=== PATIENT | female | born 1960 | race Caucasian/White ===

== ENCOUNTER 2017-12-02 11:50 | Observation (INO) | payer OTHER ==
--- NOTE | 2017-12-02 12:22 | ED ---
General Adult HPI - General Chief complaint: Arrhythmia/Palpitations Stated complaint: Abn EKG Time Seen by Provider: 12/02/17 12:05 Source: patient, RN notes reviewed, old records reviewed Mode of arrival: ambulatory Limitations: no limitations - History of Present Illness Initial comments: This is a 57-year-old female to the ER for evaluation. Patient presents ER today for evaluation regarding chest pain. Patient sent in for evaluation by family doctor regarding palpitations possibly abnormal EKG. Patient does admit to palpitations elevated heart rate. Occasional shortness of breath but she does suffer shortness of breath with asthma and smoking. Patient denies any history of prior heart disease or heart attack. No recent travel history or sick contacts. No fever cough or congestion - Related Data Home Medications Medication Instructions Recorded Confirmed ALPRAZolam [Xanax] 0.125 mg PO BID PRN 12/02/17 12/02/17 ARIPiprazole [Abilify] 2 mg PO HS 12/02/17 12/02/17 Albuterol Inhaler [Ventolin Hfa 2 puff INHALATION RT-QID PRN 12/02/17 12/02/17 Inhaler] Beclomethasone Dip 80 Mcg/Puff 1 puff INHALATION RT-BID 12/02/17 12/02/17 [Qvar 80 mcg] Gemfibrozil [Lopid] 600 mg PO BID 12/02/17 12/02/17 Ibuprofen [Motrin] 800 mg PO TID PRN 12/02/17 12/02/17 Levothyroxine Sodium [Synthroid] 50 mcg PO DAILY 12/02/17 12/02/17 Loratadine [Claritin] 10 mg PO DAILY 12/02/17 12/02/17 Ranitidine HCl [Zantac] 150 mg PO BID 12/02/17 12/02/17 Sertraline HCl [Zoloft] 50 mg PO HS 12/02/17 12/02/17 Allergies Allergy/AdvReac Type Severity Reaction Status Date / Time cephalexin [From Keflex] Allergy Rash/Hives Verified 12/02/17 12:20 Review of Systems ROS Statement: Those systems with pertinent positive or pertinent negative responses have been documented in the HPI. ROS Other: All systems not noted in ROS Statement are negative. Past Medical History Past Medical History: Asthma, Chest Pain / Angina, Hyperlipidemia, Thyroid Disorder History of Any Multi-Drug Resistant Organisms: None Reported Past Surgical History: Tonsillectomy, Tubal Ligation Past Psychological History: Bipolar, PTSD Smoking Status: Current every day smoker Past Alcohol Use History: None Reported Past Drug Use History: None Reported - Past Family History Father Family Medical History: No Reported History Additional Family Medical History / Comment(s): Father is healthy. He is 82 yrs old. Mother Family Medical History: Congestive Heart Failure (CHF) Additional Family Medical History / Comment(s): Mother of CHF at the age of 77yrs. General Exam Limitations: no limitations General appearance: alert, in no apparent distress Head exam: Present: atraumatic, normocephalic, normal inspection Eye exam: Present: normal appearance, PERRL, EOMI. Absent: scleral icterus, conjunctival injection, periorbital swelling ENT exam: Present: normal exam, mucous membranes moist Neck exam: Present: normal inspection. Absent: tenderness, meningismus, lymphadenopathy Respiratory exam: Present: normal lung sounds bilaterally. Absent: respiratory distress, wheezes, rales, rhonchi, stridor Cardiovascular Exam: Present: regular rate, normal rhythm, normal heart sounds. Absent: systolic murmur, diastolic murmur, rubs, gallop, clicks GI/Abdominal exam: Present: soft, normal bowel sounds. Absent: distended, tenderness, guarding, rebound, rigid Extremities exam: Present: normal inspection, full ROM, normal capillary refill. Absent: tenderness, pedal edema, joint swelling, calf tenderness Back exam: Present: normal inspection Neurological exam: Present: alert, oriented X3, CN II-XII intact Psychiatric exam: Present: normal affect, normal mood Skin exam: Present: warm, dry, intact, normal color. Absent: rash Course Vital Signs 12/02/17 12/02/17 12/02/17 12:00 13:06 14:05 Temperature 98.3 F 98.3 F Pulse Rate 88 77 77 Respiratory 18 18 18 Rate Blood Pressure 145/90 143/67 137/78 O2 Sat by Pulse 96 97 98 Oximetry - Reevaluation(s) Reevaluation #1: Patient with no significant symptoms, no chest pain. EKG Findings - EKG Comments: EKG Findings:: EKG shows sinus rhythm rate of 75, NM 120, QRS 78, QTc 475 Medical Decision Making - Medical Decision Making 57 female the ER for evaluation of chest pain. Atypical chest pain with palpitations and tachycardia, patient be admitted for cardiac observation - Lab Data Result diagrams: 12/02/17 12:06 12/02/17 12:06 Lab Results 12/02/17 12/02/17 12/02/17 Range/Units 12:06 12:06 12:06 WBC 9.8 (3.8-10.6) k/uL RBC 4.31 (3.80-5.40) m/uL Hgb 13.7 (11.4-16.0) gm/dL Hct 41.5 (34.0-46.0) % MCV 96.4 (80.0-100.0) fL MCH 31.8 (25.0-35.0) pg MCHC 33.0 (31.0-37.0) g/dL RDW 13.1 (11.5-15.5) % Plt Count 434 (150-450) k/uL Neutrophils % 69 % Lymphocytes % 20 % Monocytes % 6 % Eosinophils % 4 % Basophils % 1 % Neutrophils # 6.7 (1.3-7.7) k/uL Lymphocytes # 1.9 (1.0-4.8) k/uL Monocytes # 0.6 (0-1.0) k/uL Eosinophils # 0.4 (0-0.7) k/uL Basophils # 0.1 (0-0.2) k/uL PT 10.0 (9.0-12.0) sec INR 1.0 (<1.2) APTT 24.4 (22.0-30.0) sec Sodium (137-145) mmol/L Potassium (3.5-5.1) mmol/L Chloride (98-107) mmol/L Carbon Dioxide (22-30) mmol/L Anion Gap mmol/L BUN (7-17) mg/dL Creatinine (0.52-1.04) mg/dL Est GFR (CKD-EPI)AfAm (>60 ml/min/1.73 sqM) Est GFR (CKD-EPI)NonAf (>60 ml/min/1.73 sqM) Glucose (74-99) mg/dL Calcium (8.4-10.2) mg/dL Magnesium (1.6-2.3) mg/dL Total Bilirubin (0.2-1.3) mg/dL AST (14-36) U/L ALT (9-52) U/L Alkaline Phosphatase (38-126) U/L Total Creatine Kinase 71 (30-135) U/L CK-MB (CK-2) 0.3 (0.0-2.4) ng/mL CK-MB (CK-2) Rel Index 0.4 Troponin I <0.012 (0.000-0.034) ng/mL Total Protein (6.3-8.2) g/dL Albumin (3.5-5.0) g/dL 12/02/17 Range/Units 12:06 WBC (3.8-10.6) k/uL RBC (3.80-5.40) m/uL Hgb (11.4-16.0) gm/dL Hct (34.0-46.0) % MCV (80.0-100.0) fL MCH (25.0-35.0) pg MCHC (31.0-37.0) g/dL RDW (11.5-15.5) % Plt Count (150-450) k/uL Neutrophils % % Lymphocytes % % Monocytes % % Eosinophils % % Basophils % % Neutrophils # (1.3-7.7) k/uL Lymphocytes # (1.0-4.8) k/uL Monocytes # (0-1.0) k/uL Eosinophils # (0-0.7) k/uL Basophils # (0-0.2) k/uL PT (9.0-12.0) sec INR (<1.2) APTT (22.0-30.0) sec Sodium 145 (137-145) mmol/L Potassium 3.8 (3.5-5.1) mmol/L Chloride 103 (98-107) mmol/L Carbon Dioxide 29 (22-30) mmol/L Anion Gap 13 mmol/L BUN 6 L (7-17) mg/dL Creatinine 0.67 (0.52-1.04) mg/dL Est GFR (CKD-EPI)AfAm >90 (>60 ml/min/1.73 sqM) Est GFR (CKD-EPI)NonAf >90 (>60 ml/min/1.73 sqM) Glucose 99 (74-99) mg/dL Calcium 9.9 (8.4-10.2) mg/dL Magnesium 2.0 (1.6-2.3) mg/dL Total Bilirubin 0.3 (0.2-1.3) mg/dL AST 22 (14-36) U/L ALT 16 (9-52) U/L Alkaline Phosphatase 126 (38-126) U/L Total Creatine Kinase (30-135) U/L CK-MB (CK-2) (0.0-2.4) ng/mL CK-MB (CK-2) Rel Index Troponin I (0.000-0.034) ng/mL Total Protein 7.1 (6.3-8.2) g/dL Albumin 4.1 (3.5-5.0) g/dL - Radiology Data Radiology results: report reviewed (Chest x-rays negative for acute disease), image reviewed Disposition Clinical Impression: Chest pain, Palpitations Disposition: ADMITTED IP TO THIS [facility] Condition: Undetermined
[2017-12-02 12:32] LABS: Basophils # (A) 0.1 k/uL (0-0.2); Basophils % (A) 1 %; Eosinophils # (A) 0.4 k/uL (0-0.7); Eosinophils % (A) 4 %; HCT 41.5 % (34.0-46.0); HGB 13.7 gm/dL (11.4-16.0); Lymphocytes # (A) 1.9 k/uL (1.0-4.8); Lymphocytes % (A) 20 %; MCH 31.8 pg (25.0-35.0); MCV 96.4 fL (80.0-100.0); Mean Platelet Volume 7.3; Monocytes # (A) 0.6 k/uL (0-1.0); Monocytes % (A) 6 %; Neutrophils # (A) 6.7 k/uL (1.3-7.7); Neutrophils % (A) 69 %; Platelet Count 434 k/uL (150-450); RBC 4.31 m/uL (3.80-5.40); RDW 13.1 % (11.5-15.5); WBC 9.8 k/uL (3.8-10.6)
--- NOTE | 2017-12-02 12:39 | XR ---
EXAMINATION TYPE: XR chest 2V DATE OF EXAM: 12/02/2017 COMPARISON: NONE HISTORY: Shortness of breath TECHNIQUE: Frontal and lateral views of the chest are obtained. FINDINGS: Scattered senescent parenchymal changes noted. Hyperinflation compatible with COPD. No evidence for infiltrate. No evidence for atelectasis. Heart size is stable. Mediastinal structures are stable and grossly unremarkable. No evidence for hilar prominence. Degenerative changes dorsal spine. IMPRESSION: 1. No evidence for acute pulmonary disease.
[2017-12-02 12:47] LABS: ALT 16 U/L (9-52); AST 22 U/L (14-36); Albumin 4.1 g/dL (3.5-5.0); Alkaline Phosphatase 126 U/L (38-126); Anion Gap 13 mmol/L; Blood Urea Nitrogen 6 mg/dL (7-17); Calcium 9.9 mg/dL (8.4-10.2); Carbon Dioxide 29 mmol/L (22-30); Chloride 103 mmol/L (98-107); Glucose 99 mg/dL (74-99); Potassium 3.8 mmol/L (3.5-5.1); Sodium 145 mmol/L (137-145); Total Bilirubin 0.3 mg/dL (0.2-1.3); Total Protein 7.1 g/dL (6.3-8.2)
[2017-12-02 12:48] LABS: Partial Thromboplastin Time 24.4 sec (22.0-30.0)
[2017-12-02 12:53] LABS: Creatine Kinase 71 U/L (30-135)
[2017-12-02 13:07] LABS: Creatine Kinase MB 0.3 ng/mL (0.0-2.4); Troponin I <0.012 ng/mL (0.000-0.034)
[2017-12-02] MEDS ORDERED: MORPHINE SULFATE 4MG/4ML SYRG IV PRN (13:34)
[2017-12-02] MEDS ORDERED: NITROGLYCERIN SL TABS 0.4 MG TAB SUBLINGUAL PRN (13:34)
[2017-12-02] MEDS ORDERED: INFLUENZA VACCINE (6 MOS+) 60 MCG/0.5 ML SYRINGE IM ONE (14:25)
[2017-12-02 14:32] VITALS: BMI 18.7
[2017-12-02] MEDS ORDERED: ALBUTEROL NEBULIZED 2.5 MG/3 ML INHALATION PRN (15:21)
[2017-12-02] MEDS ORDERED: ALPRAZolam 0.25 MG TAB PO PRN (15:21)
[2017-12-02] MEDS ORDERED: IBUPROFEN 800 MG TAB PO PRN (15:21)
[2017-12-02] MEDS: LORazepam 0.5 MG TAB PO PRN (16:31)
[2017-12-02 16:55] LABS: Appearance,Urine Clear (Clear); Bilirubin,Urine Negative (Negative); Blood,Urine Negative (Negative); Color,Urine Yellow; Glucose,Urine (UA) Negative (Negative); Ketones,Urine Negative (Negative); Leukocyte Esterase,Urine Negative (Negative); Nitrite,Urine Negative (Negative); PH, Urine 6.5 (5.0-8.0); Protein,Urine Negative (Negative); Urobilinogen,Urine <2.0 mg/dL (<2.0)
--- NOTE | 2017-12-02 18:22 | XR ---
EXAMINATION TYPE: XR sinus DATE OF EXAM: 12/02/2017 COMPARISON: NONE HISTORY: Sinus pressure TECHNIQUE: 4 views FINDINGS: Orbital margins are intact. Maxilla is intact. There is fairly normal development and aerat ion of the paranasal sinuses. Sella turcica appears normal. IMPRESSION: Normal paranasal sinuses exam.
[2017-12-02 18:41] LABS: Creatine Kinase 62 U/L (30-135)
[2017-12-02 18:53] LABS: Creatine Kinase MB 0.4 ng/mL (0.0-2.4); Troponin I <0.012 ng/mL (0.000-0.034)
[2017-12-02] MEDS ORDERED: IPRATROPIUM-ALBUTEROL 3 ML NEB INHALATION SCH (20:00)
[2017-12-02] MEDS: GEMFIBROZIL 600 MG TAB PO SCH (20:10)
[2017-12-02] MEDS: FAMOTIDINE 20 MG TAB PO SCH (20:10)
[2017-12-02] MEDS: BUDESONIDE 0.5 MG/2 ML NEBU INHALATION SCH (20:15)
[2017-12-02] MEDS ORDERED: SERTRALINE 50 MG TAB PO SCH (21:00)
[2017-12-02] MEDS ORDERED: ARIPiprazole 2 MG TAB PO SCH (21:00)
--- NOTE | 2017-12-02 22:55 | P.HPIM ---
History of Present Illness H&P Date: 12/02/17 Chief Complaint: Chest pain Patient is a 57-year-old female with a known history of asthma/COPD, hyperlipidemia and hypothyroidism and anxiety/depression came to ER with complaints of chest pain. Aberrantly patient did have left retrosternal chest pain and also felt some pain in her left shoulder. Associated with shortness of breath, palpitations and nausea. No headache or dizziness. No diaphoresis. Patient has been very anxious and went to her primary care physician where she had EKG showed which was abnormal as per patient and was sent to the hospital for further evaluation. Denied any fever or chills. Denied any congestion or flulike illness. Patient does complain of a cough without minimal greenish sputum production. Patient does have greenish discharge from the nose and was started on antibiotics for possible sinusitis today morning. Patient did not take and antibiotics. Patient also complaining of bright colored urine. Otherwise patient continues to smoke 1 pack per day... No sick contacts at home. No recent travel. chest x-ray showed no acute cardio pulmonary process EKG showed normal sinus rhythm with nonspecific ST-T wave changes Troponin 1 negative No leukocytosis. UA negative. Review of Systems Constitutional: Patient denies any fever or chills . No generalized weakness or weight loss. Abdomen: Patient denied nausea vomiting and diarrhea and abdominal pain. Cardiovascular: Patient does have chest pain. And palpitations. And shortness of breath. No leg swelling Respiratory: Minimal cough with greenish sputum and shortness of breath. No wheezing Neurologic: Patient denied any numbness or tingling headache. Musculoskeletal: Patient denies any complaints of joint swelling or deformity. Skin: Negative Psychiatric: Very much anxious Endocrine: No heat or cold intolerance. No recent weight gain. Genitourinary: No dysuria or hematuria. All other 14 point ROS negative except the above Past Medical History Past Medical History: Asthma, Chest Pain / Angina, Hyperlipidemia, Thyroid Disorder Additional Past Medical History / Comment(s): Bilateral carpal tunnel syndrome with L side worse, arthritis bilateral knees, DDD, L posterior neck into L shoulder pain and back pain since 2001 work related injury, sinus problems and diagnosed today by her PCP to have a sinus infection, hiatal hernia, hypothyroid. History of Any Multi-Drug Resistant Organisms: None Reported Past Surgical History: Tonsillectomy, Tubal Ligation Additional Past Surgical History / Comment(s): EGD/colonoscopy Past Anesthesia/Blood Transfusion Reactions: No Reported Reaction Past Psychological History: Bipolar, PTSD Smoking Status: Current every day smoker Past Alcohol Use History: None Reported Past Drug Use History: None Reported - Past Family History Father Family Medical History: No Reported History Additional Family Medical History / Comment(s): Father is healthy. He is 82 yrs old. Mother Family Medical History: Congestive Heart Failure (CHF) Additional Family Medical History / Comment(s): Mother of CHF at the age of 77yrs. Medications and Allergies Home Medications Medication Instructions Recorded Confirmed Type ALPRAZolam [Xanax] 0.125 mg PO BID PRN 12/02/17 12/02/17 History ARIPiprazole [Abilify] 2 mg PO HS 12/02/17 12/02/17 History Albuterol Inhaler [Ventolin Hfa 2 puff INHALATION RT-QID PRN 12/02/17 12/02/17 History Inhaler] Beclomethasone Dip 80 Mcg/Puff 1 puff INHALATION RT-BID 12/02/17 12/02/17 History [Qvar 80 mcg] Gemfibrozil [Lopid] 600 mg PO BID 12/02/17 12/02/17 History Ibuprofen [Motrin] 800 mg PO TID PRN 12/02/17 12/02/17 History Levothyroxine Sodium [Synthroid] 50 mcg PO DAILY 12/02/17 12/02/17 History Loratadine [Claritin] 10 mg PO DAILY 12/02/17 12/02/17 History Ranitidine HCl [Zantac] 150 mg PO BID 12/02/17 12/02/17 History Sertraline HCl [Zoloft] 50 mg PO HS 12/02/17 12/02/17 History Allergies Allergy/AdvReac Type Severity Reaction Status Date / Time cephalexin [From Keflex] Allergy Rash/Hives Verified 12/02/17 12:20 Physical Exam Vitals: Vital Signs Temp Pulse Pulse Resp BP BP Pulse Ox 12/02/17 14:30 98.2 F 60 16 157/78 99 12/02/17 14:05 98.3 F 77 18 137/78 98 12/02/17 13:34 99 12/02/17 13:06 77 18 143/67 97 12/02/17 12:00 98.3 F 88 18 145/90 96 Intake and Output 12/02/17 12/02/17 12/02/17 06:59 14:59 22:59 Intake Total 240 Balance 240 Intake: Oral 240 Other: Weight 44.4 kg PHYSICAL EXAMINATION: Patient is lying in the bed comfortably, no acute distress, awake alert and oriented. Patient is very anxious. HEENT: Normocephalic. Neck is supple. Pupils reactive. Nostrils clear. Oral cavity is moist. Ears reveal no drainage. Neck reveals no JVD, carotid bruits, or thyromegaly. CHEST EXAMINATION: Trachea is central. Symmetrical expansion. Bilateral slow entry. No wheezing. CARDIAC: Normal S1, S2 with no gallops. No murmurs ABDOMEN: Soft. Bowel sounds normal. No organomegaly. No abdominal bruits. Extremities: reveal no edema. No clubbing or cyanosis Neurologically awake, alert, oriented x3 with well-coordinated movements. No focal deficits noted Skin: No rash or skin lesions. Psychiatric: Cooperative. Anxious. Musculoskeletal: No joint swelling or deformity. Normal range of motion. Results CBC & Chem 7: 12/02/17 12:06 12/02/17 12:06 Labs: Abnormal Lab Results - Last 24 Hours (Table) 12/02/17 Range/Units 12:06 BUN 6 L (7-17) mg/dL Thrombosis Risk Factor Assmnt - DVT/VTE Prophylaxis DVT/VTE Prophylaxis: Pharmacologic Prophylaxis ordered - Choose All That Apply Any of the Below Risk Factors Present?: Yes Each Factor Represents 1 point: Age 41-60 years Other Risk Factors: No Other congenital or acquired thrombophilia - If yes, enter type in comment: No Thrombosis Risk Factor Assessment Total Risk Factor Score: 1 Thrombosis Risk Factor Assessment Level: Low Risk Assessment and Plan Assessment: Atypical chest pain. Rule out acute coronary syndrome Acute bronchitis and possible sinusitis COPD/asthma Nicotine addiction Anxiety and depression Bipolar disorder and PTSD Hypothyroidism Degenerative joint disease Hyperlipidemia Hiatal hernia Bilateral carpal tunnel syndrome Plan: Patient will be continued on telemetry monitoring. Serial EKGs and troponins. Patient will be continued on DuoNeb's and Pulmicort. We will start on antibiotics in the form of azithromycin. Continue the exam neck and antidepressants. Cardiology is consulted for evaluation. Further recommendations based on the clinical course. Time with Patient: Greater than 30
[2017-12-02] MEDS: AZITHROMYCIN 500 MG TAB PO SCH (23:02)
[2017-12-02] MEDS: HEPARIN SODIUM,PORCINE 5,000 UNIT/ML 1 ML VIAL SQ SCH (23:09)
[2017-12-02] MEDS ORDERED: IPRATROPIUM-ALBUTEROL 3 ML NEB INHALATION PRN (23:51)
[2017-12-03 00:27] LABS: Cholesterol 88 mg/dL (<200); HDL Cholesterol 22 mg/dL (40-60); LDL Cholesterol,Calculated 36 mg/dL (0-99); Triglycerides 151 mg/dL (<150)
[2017-12-03 00:39] LABS: Creatine Kinase 55 U/L (30-135)
[2017-12-03 00:52] LABS: Creatine Kinase MB 0.3 ng/mL (0.0-2.4); Troponin I <0.012 ng/mL (0.000-0.034)
[2017-12-03] MEDS ORDERED: LEVOTHYROXINE 50 MCG TAB PO SCH (06:30)
[2017-12-03] MEDS: BUDESONIDE 0.5 MG/2 ML NEBU INHALATION SCH (07:55)
[2017-12-03] MEDS: IPRATROPIUM-ALBUTEROL 3 ML NEB INHALATION SCH ×3 (07:55→15:37)
[2017-12-03] MEDS ORDERED: ASPIRIN 325 MG TAB PO SCH (09:00)
[2017-12-03] MEDS ORDERED: ATORVASTATIN 80 MG TAB PO SCH (09:00)
[2017-12-03] MEDS ORDERED: LORATADINE 10 MG TAB PO SCH (09:00)
[2017-12-03] MEDS ORDERED: ASPIRIN 81 MG PO SCH (09:07)
[2017-12-03] MEDS: AZITHROMYCIN 500 MG TAB PO SCH (09:28)
[2017-12-03] MEDS: FAMOTIDINE 20 MG TAB PO SCH (09:28)
[2017-12-03] MEDS: GEMFIBROZIL 600 MG TAB PO SCH (09:28)
[2017-12-03] MEDS: HEPARIN SODIUM,PORCINE 5,000 UNIT/ML 1 ML VIAL SQ SCH ×2 (09:28→17:06)
--- NOTE | 2017-12-03 09:38 | CONS ---
CONSULTATION Mrs. Schaefer is a 57-year-old female with known history of chronic tobacco use, history of hyperlipidemia, who has been having a cough with sinus drainage and nasal drainage that was greenish. She was seen by her PCP and her EKG was abnormal and was referred to the hospital. The patient has some dyspnea on exertion. She has chronic tobacco use and history of bronchial asthma, but she denies any chest pain. She felt some palpitation in the chest, but no associated syncope or dizziness. She denies any peripheral edema. No clear PND or orthopnea. She has no prior documented cardiac disease. Her coronary risk factors are remarkable for history of hyperlipidemia as well as history of chronic tobacco use, about a pack a day. MEDICATION: At home include Zoloft, Ventolin and Abilify, Zantac, Lopid 600 mg twice a day, Q-Manas, Synthroid, Motrin, and Xanax. REVIEW OF SYSTEMS: Respiratory system: She has history of cough, asthma and chronic tobacco use. GI system: No recent GI bleeding. No peptic ulcer disease. system: No dysuria or hematuria. Nervous system: There is questionable history of seizure, although the history appears to be vague. PHYSICAL EXAMINATION: A 57-year-old female, alert, oriented, in no apparent distress. Blood pressure 113/60 with a heart in 70s. HEAD: Normocephalic. Eyes sclerae anicteric. Neck is good carotid upstroke. No jugular venous distention. LUNGS: Clear to auscultation. HEART: Regular rate and rhythm S1, S2. No S3 with systolic murmur heard at the base. Ejection type. No diastolic murmur. No rub. ABDOMEN: Soft, nontender. Positive bowel sounds. No organomegaly. EXTREMITIES: No edema and intact distal pulses. LAB DATA: Lab data revealed a troponin of less than 0.012. Cholesterol of 88, LDL of 36, BUN and creatinine 6 and 0.67, potassium 3.8, hemoglobin is 13.7. Chest x-ray shows no evidence of infiltrate. EKG revealed a sinus mechanism, rate of 75, RSR prime with minor nonspecific ST-T wave changes. Sinus x-ray shows no evidence of infectious process. IMPRESSION: 1. Symptoms of palpitation. No evidence of malignant arrhythmia. 2. Chronic tobacco use with possible bronchitis. 3. History of hyperlipidemia. 4. Chronic tobacco use. RECOMMENDATION: From the cardiac standpoint, I will obtain echocardiogram with Doppler. Increase her level of activity. If she remains stable, I would expect she should be able to be discharged home today and followed as an outpatient. I have encouraged her to stop smoking. Thank you for this consult. We will follow with you. KAYE / AKBAR: [phone] /
[2017-12-03] MEDS: LORazepam 0.5 MG TAB PO PRN (12:46)
[2017-12-03] MEDS ORDERED: MORPHINE ORAL SOLN 10 MG/5 ML CUP PO PRN (13:03)
[2017-12-03 16:04] VITALS: BP 130/68; PULSE 71; RESP 16; TEMP 97.8
--- NOTE | 2017-12-07 12:50 | ECHOF ---
Referral Reason:palpitations MEASUREMENTS -------- HEIGHT: 154.9 cm WEIGHT: 44.0 kg BP: 113/63 RVIDd: 2.5 cm (< 3.3) IVSd: 0.8 cm (0.6 - 1.1) LVIDd: 4.4 cm (3.9 - 5.3) LVPWd: 0.7 cm (0.6 - 1.1) IVSs: 1.2 cm LVIDs: 2.5 cm LVPWs: 1.5 cm LA Diam: 2.7 cm (2.7 - 3.8) LAESV Index (A-L): 11.92 ml/m Ao Diam: 3.0 cm (2.0 - 3.7) AV Cusp: 1.7 cm (1.5 - 2.6) MV EXCURSION: 16.356 mm (> 18.000) MV EF SLOPE: 104 mm/s (70 - 150) EPSS: 0.3 cm MV E Terry: 0.85 m/s MV DecT: 277 ms MV A Terry: 0.63 m/s MV E/A Ratio: 1.35 RAP: 5.00 mmHg RVSP: 32.48 mmHg FINDINGS -------- Sinus rhythm. This was a technically good study. The left ventricular size is normal. Left ventricular wall thickness is normal. Overall left vent ricular systolic function is normal with, an EF between 55 - 60 %. The right ventricle is normal in size. Normal LA size by volume 22+/-6 ml/m2. The right atrium is normal in size. The aortic valve is trileaflet and appears structurally normal. The mitral valve is normal. Mild mitral regurgitation is present. Mild tricuspid regurgitation present. Right ventricular systolic pressure is normal at < 35 mmHg. Trace/mild (physiologic) pulmonic regurgitation. The aortic root size is normal. Normal inferior vena cava with normal inspiratory collapse consistent with estimated right atrial pre ssure of 5 mmHg. There is no pericardial effusion. CONCLUSIONS -------- 1. Sinus rhythm. 2. This was a technically good study. 3. The left ventricular size is normal. 4. Left ventricular wall thickness is normal. 5. Overall left ventricular systolic function is normal with, an EF between 55 - 60 %. 6. Normal LA size by volume 22+/-6 ml/m2. 7. The aortic valve is trileaflet and appears structurally normal. 8. Mild mitral regurgitation is present. 9. Mild tricuspid regurgitation present. 10. Right ventricular systolic pressure is normal at < 35 mmHg. 11. Trace/mild (physiologic) pulmonic regurgitation. 12. The aortic root size is normal. 13. Normal inferior vena cava with normal inspiratory collapse consistent with estimated right atrial pressure of 5 mmHg. 14. There is no pericardial effusion. TUCKPOINTER: Lubna Hopkins RDCS
== END 2017-12-03 16:49 | disposition home or self-care (01) ==
LOC: EC 11:50 → 3OBS 13:34
PROVIDERS: ADMIT Hospitalist; ATTEND Hospitalist
DX: R07.89 Other chest pain (principal); J44.0 Chronic obstructive pulmonary disease with (acute) lower respiratory infection; J20.9 Acute bronchitis, unspecified; F17.210 Nicotine dependence, cigarettes, uncomplicated; R00.2 Palpitations; R00.0 Tachycardia, unspecified; F41.9 Anxiety disorder, unspecified; F31.9 Bipolar disorder, unspecified; F43.10 Post-traumatic stress disorder, unspecified; K44.9 Diaphragmatic hernia without obstruction or gangrene; E03.9 Hypothyroidism, unspecified; E78.5 Hyperlipidemia, unspecified; M17.0 Bilateral primary osteoarthritis of knee; M25.512 Pain in left shoulder; G56.03 Carpal tunnel syndrome, bilateral upper limbs; Z88.1 Allergy status to other antibiotic agents; Z79.899 Other long term (current) drug therapy; Z79.51 Long term (current) use of inhaled steroids; Z82.49 Family history of ischemic heart disease and other diseases of the circulatory system
CPT/HCPCS: 99285 ×2; 96372 ×2; 96374; 36415; 94640 ×2; 94760 ×2; 93005; 93306; 80061; 80053; 84443; 82550; 82553; 83735; 84484; 85025; 85610; 85730; 81003; 70220; 71046; G0378 ×2; J1644 ×2; J2270

== ENCOUNTER → 2018-04-11 | Outpatient (CLI) | payer OTHER ==
--- NOTE | 2018-04-13 11:54 | MM ---
Reason for exam: screening (asymptomatic). Last mammogram was performed 5 years ago. History: Patient is postmenopausal. Family history of breast cancer in maternal aunt at age 50. Physical Findings: A clinical breast exam by your physician is recommended on an annual basis and results should be correlated with mammographic findings. MG Screening Mammo w CAD Bilateral CC and MLO view(s) were taken. Prior study comparison: April 20, 2013, bilateral digital screening mammo w/CAD. February 15, 2011, CAD bilateral diagnostic mammogram. The breast tissue is heterogeneously dense. This may lower the sensitivity of mammography. There is chronic nodularity bilaterally. There is no dominant lesion. No significant changes when compared with prior studies. ASSESSMENT: Negative, BI-RAD 1 RECOMMENDATION: Routine screening mammogram of both breasts in 1 year.
== END ==
LOC: RADMAMWWP 13:37
PROVIDERS: ATTEND Internal Medicine
DX: Z12.31 Encounter for screening mammogram for malignant neoplasm of breast (principal)
CPT/HCPCS: 77067

== ENCOUNTER → 2019-08-01 | Outpatient (CLI) | payer OTHER ==
--- NOTE | 2019-08-03 11:11 | MM ---
Reason for exam: screening (asymptomatic). Last mammogram was performed 1 year and 4 months ago. History: Patient is postmenopausal. Family history of breast cancer in maternal aunt at age 50. Physical Findings: A clinical breast exam by your physician is recommended on an annual basis and results should be correlated with mammographic findings. MG Screening Mammo w CAD Bilateral CC and MLO view(s) were taken. Prior study comparison: April 11, 2018, bilateral MG screening mammo w CAD. April 20, 2013, bilateral digital screening mammo w/CAD. The breast tissue is heterogeneously dense. This may lower the sensitivity of mammography. No significant changes when compared with prior studies. ASSESSMENT: Benign, BI-RAD 2 RECOMMENDATION: Routine screening mammogram of both breasts in 1 year.
== END | disposition home or self-care (01) ==
LOC: RADMAMWWP 14:35
PROVIDERS: ATTEND Internal Medicine
DX: Z12.31 Encounter for screening mammogram for malignant neoplasm of breast (principal)
CPT/HCPCS: 77067

== ENCOUNTER → 2021-05-29 | Outpatient (CLI) | payer OTHER ==
[2021-05-29 18:35] LABS: African American GFR (CKD) 87.2 (60.0-200.0); Albumin 4.8 g/dL (3.8-4.9); Albumin/Globulin Ratio 1.84 (1.60-3.17); Anion Gap 15.7 mmol/L (4.00-12.00); BUN/Creat Ratio 13.65 Ratio (12.00-20.00); Blood Urea Nitrogen 11.3 mg/dL (9.0-27.0); Calcium 10.1 mg/dL (8.7-10.3); Carbon Dioxide 22.2 mmol/L (21.6-31.8); Chol/HDL Ratio 3.85 Ratio; Globulin 2.6 g/dL (1.6-3.3); LDL Cholesterol,Calculated 79.8 mg/dL (0.0-131.0); Non-African American GFR(CKD) 75.3 (60.0-200.0); Potassium 3.5 mmol/L (3.5-5.5); Total Bilirubin 0.6 mg/dL (0.30-1.20); Total Protein 7.4 g/dL (6.2-8.2); Triglycerides 86.2 mg/dL (0.00-149.00); VLDL Calculation 17.24 mg/dL (5.00-40.00)
== END | disposition home or self-care (01) ==
LOC: LABWHC1 08:57
PROVIDERS: ATTEND Internal Medicine Interventional Cardiology
DX: E78.2 Mixed hyperlipidemia (principal)
CPT/HCPCS: 36415; 80053; 80061

== ENCOUNTER → 2022-08-16 | Outpatient (CLI) | payer OTHER ==
--- NOTE | 2022-08-16 11:02 | CTL ---
EXAMINATION TYPE: CT Low Dose Lung DATE OF EXAM ORDERED: 08/16/2022 HISTORY: 62-year-old female Z87.891, personal history of nicotine dependence. Lung cancer screening. Current smoker with 48 pack-year history. CT DLP: 2.[address] CTDI: 80.10 mGy Automated exposure control for dose reduction was used. SCREENING VISIT: Baseline COMPARISON: None TECHNIQUE: Low dose computed tomography scan was performed through the chest with coronal and sagitta l reconstructions. CT DIAGNOSTIC QUALITY: Satisfactory FINDINGS: Heart normal size without pericardial effusion. Aorta normal caliber with conventional branching anatomy. A few scattered borderline enlarged mediastinal lymph nodes measuring up to 1 cm in the AP window and 9 mm in the precarinal region. Probably reactive/post inflammatory. Normal variant azygos fissure. There is irregular opacity at the right apex measuring 1.5 cm, likely pleural parenchymal scarring. Reassess at a 3 month follow-up. Moderately advanced centrilobular emph ysema. Strandy atelectasis or scarring at the left base. Possible 1.1 cm pulmonary nodule at the righ t hilum versus vascular confluence, axial image 33. No consolidation or pleural effusion. No other suspicious pulmonary nodules are seen. Visualized upper abdomen shows no gross abnormality. Bones: No osseous destructive process. IMPRESSION: 1. Lung RADS 4, suspicious. 1.5 cm density at the right apex, probably pleural parenchymal scarring. 1.1 cm right hilar nodularity, either pulmonary nodule or vascular confluence. 2. COPD with moderate to advanced emphysema. CT LUNG RAD AND CT CHEST RECOMMENDATION: Lung-Rad 4A Suspicious: Three-month follow-up contrast-enhan aida CT chest to reassess and better characterize the hilar finding. S Modifier (other clinically significant findings): None
== END | disposition home or self-care (01) ==
LOC: RADCTMAIN 09:42
PROVIDERS: ATTEND Family Medicine
DX: Z12.2 Encounter for screening for malignant neoplasm of respiratory organs (principal); J43.9 Emphysema, unspecified; F17.210 Nicotine dependence, cigarettes, uncomplicated
CPT/HCPCS: 71271

== ENCOUNTER → 2022-11-03 | Outpatient (CLI) | payer OTHER ==
--- NOTE | 2022-11-03 12:59 | MM ---
Reason for Exam: Screening (asymptomatic). Last mammogram was performed 3 year(s) and 3 month(s) ago. Patient History: Menarche at age 7. First Full-Term at age 15. Postmenopausal. Maternal aunt had breast cancer, age 50. Risk Values: Jerilyn 5 year model risk: 1.3%. NCI Lifetime model risk: 5.2%. Prior Study Comparison: 04/20/2013 Bilateral Screening Mammogram, [facility]. 04/11/2018 Bilateral Screening Mammogram, [facility]. 08/01/2019 Bilateral Screening Mammogram, [facility]. Tissue Density: The breast tissue is heterogeneously dense. This may lower the sensitivity of mammography. Analyzed By CAD. Overall Assessment: Negative, BI-RAD 1 Management: Screening Mammogram of both breasts in 1 year. Electronically signed and approved by: Mark Harris M.D.
== END | disposition home or self-care (01) ==
LOC: RADMAMWWP 11:21
PROVIDERS: ATTEND Family Medicine
DX: Z12.31 Encounter for screening mammogram for malignant neoplasm of breast (principal); Z78.0 Asymptomatic menopausal state; Z80.3 Family history of malignant neoplasm of breast
CPT/HCPCS: 77067

== ENCOUNTER → 2022-11-12 | Outpatient (CLI) | payer OTHER ==
--- NOTE | 2022-11-12 08:33 | CT ---
EXAMINATION TYPE: CT chest w con CT DLP: 208 mGycm, Automated exposure control for dose reduction was used. DATE OF EXAM: 11/12/2022 8:17 AM COMPARISON: CT low-dose lung cancer screening 08/16/2022. CLINICAL INDICATION:Female, 62 years old with history of R91.1 SPN; PHH, Solitary pulmonary nodule. TECHNIQUE: Multiple axial images were obtained through the chest following the administration of 100 cc of Isovue 300. FINDINGS: LUNGS/ PLEURA: Normal variant azygous fissure. Moderate centrilobular emphysematous changes. Stable right apical pleural parenchymal scar. No pleural effusion or pneumothorax. No focal consolidation. N o suspicious pulmonary nodule or mass. AIRWAY: Patent and unremarkable.. HEART: Size within normal limits. No pericardial effusion. MEDIASTINUM/HILUM: 7 mm right infrahilar nonenlarged lymph node corresponding to questioned pulmonary nodule. No pathologically enlarged lymph nodes. VASCULATURE: No aortic aneurysm. MUSCULOSKELETAL: No acute osseous abnormalities SOFT TISSUES/LYMPH NODES: Unremarkable. LOWER NECK: No significant findings. UPPER ABDOMEN: No significant findings. IMPRESSION: 1. Stable pleural parenchymal scarring within the right lung apex. 2. Moderate COPD changes. 3. Previously questioned pulmonary nodule corresponds to a nonenlarged benign-appearing right infrahi lar lymph node.
== END | disposition home or self-care (01) ==
LOC: RADCTMAIN 07:52
PROVIDERS: ATTEND Family Medicine
DX: J44.9 Chronic obstructive pulmonary disease, unspecified (principal); J98.4 Other disorders of lung; R91.1 Solitary pulmonary nodule
CPT/HCPCS: 71260; Q9967

== ENCOUNTER → 2023-07-26 | Outpatient (CLI) | payer MEDICARE, OTHER ==
[2023-07-26 16:47] LABS: Eosinophils # (A) 0.14 X 10*3/uL (0.04-0.35); Eosinophils % (A) 1.4 %; HCT 42.5 % (37.2-46.3); HGB 13.6 g/dL (12.0-15.0); Lymphocytes % (A) 12.2 %; MCH 31.1 pg (27.0-32.0); Monocytes # (A) 0.79 X 10*3/uL (0.20-1.00); NRBC Per 100 WBC 0 X 10*3/uL (0.00-0.01); Neutrophils # (A) 7.55 X 10*3/uL (1.80-7.70); Platelet Count 403 X 10*3/uL (140-440); RBC 4.38 X 10*6/uL (4.10-5.20); RDW 12.9 % (11.5-14.5); WBC 9.82 X 10*3/uL (4.50-10.00)
[2023-07-26 17:24] LABS: ALT 13 U/L (8-44); AST 20 U/L (13-35); Albumin 4.9 g/dL (3.8-4.9); Albumin/Globulin Ratio 1.96 Ratio (1.60-3.17); Alkaline Phosphatase 91 U/L (41-126); BUN/Creat Ratio 11.43 Ratio (12.00-20.00); Calcium 10.4 mg/dL (8.7-10.3); Chloride 101 mmol/L (96-109); Globulin 2.5 g/dL (1.6-3.3); Glucose 120 mg/dL (70-110); LDL Cholesterol,Calculated 97.4 mg/dL (0.0-131.0); Potassium 4.7 mmol/L (3.5-5.5); Sodium 140 mmol/L (135-145); Total Bilirubin 0.6 mg/dL (0.3-1.2); Total Protein 7.4 g/dL (6.2-8.2); VLDL Calculation 15.28 mg/dL (5.00-40.00)
== END | disposition home or self-care (01) ==
LOC: LABWHC1 10:45
PROVIDERS: ATTEND Internal Medicine Interventional Cardiology
DX: I10 Essential (primary) hypertension (principal); E78.2 Mixed hyperlipidemia; D48.5 Neoplasm of uncertain behavior of skin; E53.8 Deficiency of other specified B group vitamins; E55.9 Vitamin D deficiency, unspecified; R91.1 Solitary pulmonary nodule
CPT/HCPCS: 36415; 80053; 80061; 82306; 82607; 84443; 85025